=== PATIENT | male | born 1990 | race Caucasian/White ===

== ENCOUNTER 2023-02-24 21:47 | Emergency (ER) | payer OTHER ==
[2023-02-24 21:57] VITALS: BP 142/91; PULSE 116; RESP 18
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
[2023-02-24 22:45] LABS: Amphetamine Screen,Urine Not Detected (NotDetected); Barbiturate Screen,Urine Not Detected (NotDetected); Benzodiazepines Screen,Urine Not Detected (NotDetected); Cocaine Screen,Urine Not Detected (NotDetected); Methadone Screen, Urine Not Detected (NotDetected); Opiate Screen,Urine Not Detected (NotDetected); Oxycodone Screen, Urine Not Detected (NotDetected); Phencyclidine Screen,Urine Not Detected (NotDetected); Tricyclic Antidepressant,Urine Not Detected (NotDetected); Urn Cannabinoid Scrn Not Detected (NotDetected)
== END 2023-02-25 03:17 | disposition home or self-care (01) ==
LOC: EC 21:47
DX: S50.812A Abrasion of left forearm, initial encounter (principal); F10.129 Alcohol abuse with intoxication, unspecified; R45.88 Nonsuicidal self-harm; F17.200 Nicotine dependence, unspecified, uncomplicated; W26.0XXA Contact with knife, initial encounter
CPT/HCPCS: 80306; 82075; 99285